=== PATIENT | female | born 1945 | race Caucasian/White ===

== ENCOUNTER 2017-01-13 08:27 | Outpatient (CLI) | payer MEDICARE, OTHER ==
[2017-01-13 12:59] LABS: ALT (SGPT) 25 U/L (0-55); AST (SGOT) 23 U/L (5-34); Alkaline Phosphatase 48 U/L (40-150); Anion Gap 16 mmol/L (10-20); BUN (Urea Nitrogen) 25 mg/dL (9.8-20.1); Bilirubin, Direct 0.2 mg/dL (0.1-0.3); Bilirubin, Total 0.3 mg/dL (0.2-1.2); Calc. Creatinine Clearance 0 mL/min (70-130); Calcium 9.6 mg/dL (7.8-10.44); Carbon Dioxide 23 mmol/L (23-31); Chloride 107 mmol/L (98-107); Estimated GFR-MDRD 56; LDL Cholesterol, Calculated 73 mg/dL; Protein, Total 7.9 g/dL (5.8-8.1)
[2017-01-13 13:05] LABS: Hemoglobin A1c 4.8 % (4.0-6.0)
[2017-01-13 14:03] LABS: Hematocrit 33.8 % (36.0-47.0); Neutrophil 33 % (42-75); Red Blood Cell (RBC) Count 3.63 mill/uL (4.20-5.40)
== END 2017-01-13 08:28 ==
LOC: NAVSJIPCSP 08:27
PROVIDERS: ATTEND Nurse Practitioner Family
DX: E03.9 Hypothyroidism, unspecified (principal); I10 Essential (primary) hypertension; Z79.899 Other long term (current) drug therapy
CPT/HCPCS: 36415; 80048; 80061; 80076; 83036; 84443; 85025

== ENCOUNTER 2017-05-20 08:22 | Outpatient (CLI) | payer MEDICARE, OTHER ==
[2017-05-20 13:00] LABS: ALT (SGPT) 16 U/L (8-55); AST (SGOT) 17 U/L (5-34); Albumin 4.2 g/dL (3.4-4.8); Alkaline Phosphatase 57 U/L (40-150); Anion Gap 17 mmol/L (10-20); BUN (Urea Nitrogen) 39 mg/dL (9.8-20.1); Bilirubin, Direct 0.2 mg/dL (0.1-0.3); Bilirubin, Total 0.2 mg/dL (0.2-1.2); Calc. Creatinine Clearance 0 mL/min (70-130); Calcium 9.3 mg/dL (7.8-10.44); Carbon Dioxide 19 mmol/L (23-31); Cardiac Risk 3.1 (Less than 4.5); Chloride 106 mmol/L (98-107); Cholesterol 109 mg/dl (< 200 Desired); Estimated GFR-MDRD 61; Glucose 116 mg/dL (80-115); HDL Cholesterol 35 mg/dL (>60 Neg Risk); LDL Cholesterol, Calculated 59 mg/dL; Potassium 4.8 mmol/L (3.5-5.1); Protein, Total 8.1 g/dL (6.0-8.3); Sodium 137 mmol/L (136-145); Triglycerides 75 mg/dL (Less than 150)
[2017-05-20 14:03] LABS: Hemoglobin 10.8 g/dL (12.0-16.0); Mean Corpuscular HGB CONC 32.8 g/dL (32.0-36.0); Mean Corpuscular Hemoglobin 30.2 pg (27.0-31.0); Mean Corpuscular Volume 92.1 fl (81.0-99.0); Mean Platelet Volume 6.5 fL (7.4-10.4); Platelet Count 187 thou/uL (130-400); RBC Distribution Width 12.5 % (11.5-14.5); Red Blood Cell (RBC) Count 3.58 mill/uL (4.20-5.40); White Blood Cell (WBC) Count 2.5 thou/uL (4.8-10.8)
[2017-05-20 14:04] LABS: Eosinophils 1 % (0-10); Lymphocytes 52 % (21-51); MDiff Complete? YES; Monocytes 9 % (0-10); Neutrophil 38 % (42-75); PLT Morphology Comment Appears Adequate
== END 2017-05-20 08:23 | disposition home or self-care (01) ==
LOC: NAVSJIPCSP 08:22
PROVIDERS: ATTEND Family Medicine
DX: E03.9 Hypothyroidism, unspecified (principal); E11.65 Type 2 diabetes mellitus with hyperglycemia; I10 Essential (primary) hypertension; Z79.899 Other long term (current) drug therapy
CPT/HCPCS: 36415; 80048; 80061; 80076; 83036; 84443; 85025

== ENCOUNTER 2017-05-26 11:51 | Outpatient (CLI) | payer MEDICARE, OTHER ==
[2017-05-27 17:44] LABS: Iron 69 ug/dL (50-170); Iron Binding Capacity, Total 395 mcg/dL (265-497)
== END 2017-05-26 11:52 | disposition home or self-care (01) ==
LOC: NAVSJIPCSP 11:51
PROVIDERS: ATTEND Nurse Practitioner Family
DX: D64.9 Anemia, unspecified (principal)
CPT/HCPCS: 36415; 83540; 83550

== ENCOUNTER 2017-11-19 15:05 | Emergency (ER) | payer MEDICARE, OTHER ==
[2017-11-19] MEDS ORDERED: HYDROcodone/Acetaminophen 5/325 mg Tablet ONE (16:36)
--- NOTE | 2017-11-19 16:38 | RAD ---
LEFT SHOULDER THREE VIEWS: HISTORY: Fall. Left shoulder pain. FINDINGS: There are fractures involving the neck and greater tuberosity of the left humerus with mild displacem ent of the greater tuberosity. POS: [facility]ERNARD[facility]
== END 2017-11-19 16:44 | disposition home or self-care (01) ==
LOC: NAV ERS 15:05
DX: S42.202A Unspecified fracture of upper end of left humerus, initial encounter for closed fracture (principal); E11.9 Type 2 diabetes mellitus without complications; E78.5 Hyperlipidemia, unspecified; M06.9 Rheumatoid arthritis, unspecified; W18.09XA Striking against other object with subsequent fall, initial encounter

== ENCOUNTER 2017-12-17 14:02 | Emergency (ER) | payer MEDICARE, OTHER ==
[2017-12-17 14:54] LABS: Mean Corpuscular HGB CONC 33.2 g/dL (32.0-36.0); Mean Corpuscular Hemoglobin 30.1 pg (27.0-31.0); Mean Corpuscular Volume 90.5 fl (81.0-99.0); Mean Platelet Volume 8.3 fL (7.4-10.4); Platelet Count 184 thou/uL (130-400); RBC Distribution Width 11.8 % (11.5-14.5); Red Blood Cell (RBC) Count 3.66 mill/uL (4.20-5.40); White Blood Cell (WBC) Count 3.3 thou/uL (4.8-10.8)
[2017-12-17 15:10] LABS: ALT (SGPT) 14 U/L (8-55); AST (SGOT) 19 U/L (5-34); Albumin 4.2 g/dL (3.4-4.8); Alkaline Phosphatase 80 U/L (40-150); Anion Gap 13 mmol/L (10-20); BUN (Urea Nitrogen) 40 mg/dL (9.8-20.1); Bilirubin, Total 0.3 mg/dL (0.2-1.2); Calc. Creatinine Clearance 0 mL/min (70-130); Calcium 10.3 mg/dL (7.8-10.44); Carbon Dioxide 22 mmol/L (23-31); Chloride 102 mmol/L (98-107); Estimated GFR-MDRD 64; Globulin 4.6 g/dL (2.4-3.5); Lipase 69 U/L (8-78); Potassium 4.3 mmol/L (3.5-5.1); Protein, Total 8.8 g/dL (6.0-8.3); Sodium 133 mmol/L (136-145)
[2017-12-17 15:30] LABS: Band 2 % (5-11); Eosinophils 4 % (0-10); Lymphocytes 69 % (21-51); MDiff Complete? YES; Monocytes 4 % (0-10); Neutrophil 21 % (42-75); PLT Morphology Comment Appears Adequate; RBC Morphology Normal
[2017-12-17 15:33] LABS: Glucose 58 mg/dL (80-115)
== END 2017-12-17 15:44 | disposition home or self-care (01) ==
LOC: NAV ERS 14:02
DX: R10.13 Epigastric pain (principal); E11.9 Type 2 diabetes mellitus without complications; E78.5 Hyperlipidemia, unspecified; I10 Essential (primary) hypertension; M06.9 Rheumatoid arthritis, unspecified; Z79.899 Other long term (current) drug therapy; Z79.84 Long term (current) use of oral hypoglycemic drugs
CPT/HCPCS: 80053; 83605; 83690; 85025; 99284

== ENCOUNTER 2019-05-01 10:09 | Outpatient (CLI) | payer MEDICARE ==
--- NOTE | 2019-05-01 11:22 | ULT ---
Ultrasound thyroid: DATE: 05/01/2019 HISTORY: 73-year-old female with abnormal findings of thyroid gland found on screening carotid Doppler ultraso und at another facility COMPARISON: None available FINDINGS: Isthmus: 0.5 cm AP Right lobe: 3.9 x 1.5 x 1.3 cm Left lobe: 3.1 x 0.9 x 1.1 cm The thyroid parenchymal echogenicity and echotexture are diffusely heterogeneous, with the appearance of innumerable tiny nodules, none more suspicious than the others. The borders of the nodules are indistinct, making measurements difficult. IMPRESSION: Atrophic, multinodular goiter with innumerable very small nodules.
== END 2019-05-01 10:10 | disposition home or self-care (01) ==
LOC: NAV ULT 10:09
PROVIDERS: ATTEND Family Medicine
DX: R94.6 Abnormal results of thyroid function studies (principal); E04.2 Nontoxic multinodular goiter
CPT/HCPCS: 76536

== ENCOUNTER 2021-11-18 16:22 | Outpatient (CLI) | payer MEDICARE, OTHER | END 2021-11-18 16:23 | disposition home or self-care (01) | LOC: NAV RAD 16:22 | PROVIDERS: ATTEND Family Medicine | DX: R10.12 Left upper quadrant pain (principal); R10.9 Unspecified abdominal pain; R14.0 Abdominal distension (gaseous); R11.0 Nausea; R93.5 Abnormal findings on diagnostic imaging of other abdominal regions, including retroperitoneum | CPT/HCPCS: 74018 ==